=== PATIENT | female | born 1980 | race African-American/Black ===

== ENCOUNTER → 2016-11-28 | Outpatient (CLI) | payer OTHER ==
--- NOTE | 2016-11-28 11:28 | REP ---
LEFT BREAST MAMMOGRAM WITH LEFT BREAST ULTRASOUND: Left breast mammography performed in the MLO and CC projections with additional ML view performed. Comparison made with prior studies of 04/18/2016 and 07/13/2015. Since the recent exam, patient reportedly has had ultrasound guided biopsy of a left breast nodule at 11 o'clock and according to the patient, the results were benign. Moderate fibroglandular tissue in the left breast has not changed with no new mass or evidence of clustered microcalcifications. Real-time sonographic evaluation of the left breast performed in the region of 11 o'clock. There is an oval hypoechoic nodule which measures 1.7 x 0.9 x 1.4 cm. This has remained stable since prior ultrasound dating back to 07/13/2015 at [facility]. IMPRESSION: ACR 3 probably benign. No new mammographic abnormality. Stable solid nodule 11 o'clock left breast. This has remained unchanged since 07/13/2015. Reportedly ultrasound guided biopsy was performed and the results were benign. Recommend followup ultrasound in June 2017 to ensure continued stability. BI-RADS/ACR category 3 mammogram. Probably benign findings. Initial short-term followup (usually 6 month) examination. This mammogram was interpreted with the aid of an FDA-approved computer-aided detection system. A. Negative x-ray reports should not delay biopsy if a dominant or clinically suspicious mass is present. B. Four to eight percent of cancers are not identified by x-ray. C. Adenosis and dense breasts may obscure an underlying neoplasm. The patient states she has not had a clinical breast exam in over a year. The patient letter being requested is M3. Signed by Griffin Borrego MD 11/28/2016 04:46 P
== END ==
LOC: M RAD 09:46
PROVIDERS: ATTEND Family Medicine
DX: R92.8 Other abnormal and inconclusive findings on diagnostic imaging of breast (principal); N63 Unspecified lump in breast
CPT/HCPCS: 76642; G0206